=== PATIENT | female | born 1975 | race Caucasian/White ===

== ENCOUNTER 2024-12-03 13:46 | Outpatient (AMB) | payer OTHER, SELFPAY ==
--- NOTE | 2024-12-03 14:00 | MHC.OFFVIS ---
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 She has stopped taking propranolol awhile ago and now was having frequent headaches and sometime hand tremor. Tremor or shaking sometime was felt inside more than outside. Sometime she found herself forgetful.she was also under stress. [facility] Medical History (Updated 12/03/24 @ 14:04 by Allie Jacobson MD) Migraine Depression with anxiety Assessment & Plan Assessment & Plan (1) Benign essential tremor: Comment: MRI brain WO at [facility] in Jul 2020: WNL MRI brain WWO at [facility] in Aug 2020:WNL. Code(s): G25.0 - Essential tremor Category: Medical (2) Migraine without aura: Code(s): G43.009 - Migraine without aura, not intractable, without status migrainosus Category: Medical Qualifiers: Status migrainosus presence: without status migrainosus Intractability: not intractable Qualified Code(s): G43.009 - Migraine without aura, not intractable, without status migrainosus Plan Impression: 1. Migraine without aura 2. Benign essential tremor, mild 3. Anxiety disorder associated with psychosocial stresses Recommendations: 1. Propranolol 20 mg in the morning 2. Sumatriptan 50 mg 1 a day as needed for breakthrough headaches 3. She is advised to address stress and anxiety symptoms. Previously she was taking bupropion, which she can restart. Medications: New propranolol 20 mg PO ONCE 90 tabs 0RF sumatriptan succinate 50 mg orally one a day as needed PRN; do not exceed 4 doses per 24 hrs 10 tabs 2RF migraine headache 30 days Coding Level of Care Code Est Pt Level 4 (30720) Diagnoses Benign essential tremor G25.0 Migraine without aura and without status migrainosus, not intractable G43.009 Status migrainosus presence: without status migrainosus Intractability: not intractable
--- OUTSIDE RECORDS SUMMARY | 2024-12-03 14:32 | XMS_ITS | Patient Health Record ---
Author Organization [facility] Address [address] [facility] [address] Care Team Providers Care Yard Hostler Name Role Phone Maged Jenni Primary Care Provider James Sanon Anila Unavailable [phone] Allergies Allergen (clinical drug ingredient) Drug/Non Drug Allergy documented on EMR Reaction Allergy Type Onset Date Status Penicillin Unknown Drug Allergy Active Reason For Referral No Information Medications Medication SIG (Take, Route, Fr equency, Duration) Notes Start Date End Date Status Physical Therapy 3-4x per week for 3-4 weeks 02/14 Active Physical Therapy 3-4x per week for 3-4 weeks Active Ambien Active Problems Problem Type SNOMED Code ICD Code Onset Dates Problem Status W/U Status Risk Notes Problem Pain in limb (99956813) Pain in Limb (729.5) Active confirmed Problem Plantar fasciitis (928306529) Plantar Fasciitis (728.71) Active confirmed Problem Edema (00722852) Edema (782.3) Active confirmed Problem Myositis (89948111) Myositis (729.1) Active confirmed Problem Calcaneal spur (80397860) Calcaneal spur (726.73) Active confirmed Problem Stress fracture (32739333) Stress fx (733.94) Active confirmed Plan Of Treatment No Information Insurance Providers Payer Name Payer Address Payer Phone Subscriber Number Group Number Insured Name Patient Relationship to Insured Coverage Start Date Coverage End Date Aetna Choice POS [address] [address] [place] [address] [id number] [phone] Yarelis Vaca Self - patient is the insured Medical (General) History Medical History History ICD Code asthma
--- OUTSIDE RECORDS SUMMARY | 2024-12-03 14:32 | XMS_ITS | Clinical Summary ---
Author Organization [address] Address [address] [place] [address] Phone Care Team Providers Care Middle School Teacher Name Role Phone Jenni Lynne MD Primary Care Provider [phone] Allergies Active Allergy Reactions Criticality Noted Date Comments Levofloxacin 09/30/2016 [place] like body was on fire Penicillin G Potassium Hives 05/06/2005 Medications albuterol HFA (PROAIR HFA ; PROVENTIL HFA ; VENTOLIN HFA) 90 mcg/actuation inhaler Inhale 2 Puffs into the lungs every 4 hours as needed for Cough or Wheezing. 0 Active brimonidine (Mirvaso) 0.33 % gel with pump Apply 1 Squirt topically every morning. 0 Active buPROPion XL (WELLBUTRIN XL) 300 mg 24 hr tablet Take 300 mg by mouth daily. 0 Active ferrous sulfate 325 mg (65 mg elemental iron) tablet Take 325 mg by mouth 3 times daily. Active naltrexone (DEPADE) 50 mg tablet Take 50 mg by mouth daily. 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 Allergic rhinitis 07/21/2006 Insomnia 07/21/2006 Overview (04/25/2024): Proteinuria 04/07/2006 Alopecia 11/15/2005 Overview (04/25/2024): [facility] [place] Asthma 05/06/2005 Common migraine 05/06/2005 Overview (04/25/2024): [facility] [place] Immunizations Name Administration Dates Next Due H1N1 Inj Preservative Free 07/03/2009 Influenza Quadravalent, MDCK , 0.5ml, preservative free (Flucelvax) 6mo and older 01/25/2023,02/09/2022 Influenza trivalent, with pr eservative (Fluzone; Afluria) 6mo and older 12/31/2009,03/09/2007 Influenza, Unspecified 12/06/2014 Moderna (age 6mo & older) Bi valent, COVID-19, 0.5 mL or 0.25 mL dosage 01/19/2022 [employer] SARS-CoV-2 COVID-19, mRNA, LNP-S, preservative free 05/20/2020 Pneumococcal polysaccharide 23 valent (Pneumovax 23) 2yo and older 12/13/2013 Td, Unspecified 09/28/2004 Tdap Tetanus diptheria acell ular pertussis (Boostrix; Adacel) 7yo and older 01/06/2021,11/05/2010 Surgical History Surgery Date Site/Laterality Comments SECTION PROCEDURE: [place] DELIVERY ONLY TUBAL LIGATION PROCEDURE: HISTORICAL TUBAL LIGATION TONSILLECTOMY PROCEDURE: HISTORICAL TONSILLECTOMY OTHER SURGICAL HISTORY PROCEDURE: HYSTEROSCOPY, SURGICAL/ABLATION OTHER SURGICAL HISTORY 2015 PROCEDURE: HISTORICAL SUPRACERVICAL HYSTERECTOMY W/O BSO OTHER SURGICAL HISTORY 01/06/2021 Bilateral PROCEDURE: MAMMOGRAM, SCREENING, BOTH BREASTS HYSTERECTOMY age 41 Medical History Medical History Date Comments Migraine without aura, witho ut mention of intractable migraine without mention of status migrainosus DX:Migraine without aura , without mention of intractable migraine without mention of status migrainosus Allergic rhinitis, cause unspecified 07/21/2006 DX:Allergic rhinitis, cause unspecified Insomnia, unspecified 07/21/2006 DX:Insomni a, unspecified; COMMENT: uses rare ambien Unspecified asthma(493.90) DX:Un specified asthma(493.90) Abnormal uterine bleeding (AUB) DX:Abnormal uterine bleeding (AUB) Low back pain 11/01/2017 DX:Low back pain Tremor, essential 01/06/2021 DX:Tremor, ess ential Family History Medical History Relation Name Comments Breast cancer Aunt m40s mother's siste r, Dx in 40's Other: alive and well Father Diabetes Maternal Grandfather Hypertension Maternal Grandmother MD Diabetes Mother MIand stents Breast cancer Neg Hx Colon cancer Neg Hx Ovarian cancer Neg Hx Relation Name Status Comments Aunt m40s Alive Father Alive Maternal Grandfather Maternal Grandmother Mother Alive Paternal Grandfather Paternal Grandmother Social History Tobacco Use Types Packs/Day Years Used Date Smoking Tobacco: Never Smokeless Tobacco: Never Alcohol Use Standard Drinks/Week Comments Yes 2 (1 standard drink = 0.6 oz pur e alcohol) Comments Unknown Sex and Gender Information Value Date Recorded Sex Assigned at Not on file Legal Sex Female 3:26 PM EST Gender Identity Not on file Sexual Orientation Not on file Obstetrics History Para Term AB IAB SAB Ectopic Multiple Livin g Live Births 2 2 2 2 Date Outcome GA Total Labor Labor/2nd/3rd Weight Sex Type Anes PTL Maricel A1 A5 Name Clin Term Term Last Filed Vital Signs Vital Sign Reading Time Taken Comments Blood Pressure 121/76 06/12/2023 11:04 AM EST Pulse 68 06/12/2023 11:04 AM EST Temperature - - Respiratory Rate - - Oxygen Saturation - - Inhaled Oxygen Concentration - - Weight 75.8 kg (167 lb) 06/12/2023 11:04 AM EST Height 160 cm (5' 3 ) 06/12/2023 11:04 AM EST Body Mass Index 29.58 06/12/2023 11:04 AM EST Plan of Treatment Health Maintenance Due Date Last Done Comments Hepatitis B Vaccines (1 of 3 - 19+ 3-dose series) 1996 Pneumococcal Vaccine: Pediatrics (0 to 5 Years) and At-Risk Patients (6 to 49 Years) (2 of 2 - PCV) 12/13/2014 12/13/2013 Colorectal Cancer Screening: Colonoscopy 04/16/2022 HIV Screening 04/16/2022 Hepatitis C Screening 04/16/2022 Social Influencers of Health Screening 04/16/2022 COVID-19 Vaccine ( season) 2024 01/19/2022, 03/12/2021, 06/09/2020, Additional history exists Depression Screening 05/08/2024 Influenza Vaccine (#1) 2025 , 01/25/2023, 02/09/2022, Additional history exists Cholesterol Screening (Lipid Panel) 07/31/2025 07/31/2020 Breast Cancer Screening 07/22/2026 07/23/19, 07/13/2023, 07/13/2023, Additional history exists DTaP,Tdap,and Td Vaccines (4 - Td or Tdap) 01/06/2031 01/06/2021, 11/05/2010, 09/28/2004 HIB Vaccines Aged Out No longer eligi ble based on patient's age to complete this topic HPV Vaccines Aged Out No longer eligi ble based on patient's age to complete this topic Hepatitis A Vaccines Aged Out No long er eligible based on patient's age to complete this topic IPV Vaccines Aged Out No longer eligi ble based on patient's age to complete this topic MMR Vaccines Aged Out No longer eligi ble based on patient's age to complete this topic Meningococcal ACWY Vaccine Aged Out N o longer eligible based on patient's age to complete this topic Meningococcal B Vaccine Aged Out No l onger eligible based on patient's age to complete this topic RSV Immunization Patients Under 20 months Aged Out No longer eligible based on patient's age to complete this topic Varicella Vaccines Aged Out No longer eligible based on patient's age to complete this topic Procedures Procedure Name Priority Date/Time Associated Diagnosis Comments MG MAMMO DIGITAL SCREENING W AUGUSTO BILAT Routine 07/22/2024 4:01 PM EDT Encounter for screening mammogram for breast cancer LIPID PANEL Routine 07/31/2020 from Last 3 Months or Most Recently Relevant to Health Maintenance Results * MG Mammo Digital Screening w Augusto bilat (07/22/2024 4:01 PM EDT) Anatomical Region Laterality Modality Breast Bilateral Mammography 07/23/2024 10:1 7 AM EDT Impressions 07/23/2024 10:20 AM EDT BILATERAL BREASTS: Negative, no evidence of malignancy. Normal interval follow- up is recommended in 12 months. BREAST DENSITY: C - The breasts are heterogeneously dense which may obscure small masses. BI-RADS CATEGORY: 2 - BENIGN RECOMMENDATION: Screening bilateral mammogram is recommended in 1 year. Mammo Location: [facility], [address] [place] [address], [address], . -------- FINAL REPORT -------- Dictated By: Joel Tate Dictated Date: 07/23/2024 10:17 ET Assigned Physician: Joel Tate Reviewed and Electronically Signed By: Joel Tate Signed Date: 07/23/2024 10:20 ET Workstation ID: [id number] Transcribed By: Self Edit Transcribed Date: 07/23/2024 10:17 ET Narrative 07/23/2024 10:20 AM EDT STUDY: Bilateral screening mammography with tomosynthesis and CAD TECHNIQUE: Bilateral full-field digital screening mammography is obtained and read in conjunction with computer-aided detection. Tomosynthesis as well as 2-D C view imaging were obtained. COMPARISON: Comparison made to multiple prior, most recent July 13, 2023, and most remote May 31, 2017. BILATERAL BREASTS: No significant masses, suspicious calcifications or other abnormalities are seen in either breast. Procedure Note Joel Tate MD - 07/23/2024 STUDY: Bilateral screening mammography with tomosynthesis and CAD TECHNIQUE: Bilateral full-field digital screening mammography is obtainedand read in conjunction with computer-aided detection. Tomosynthesis aswell as 2-D C view imaging were obtained. COMPARISON: Comparison made to multiple prior, most recent July 13, 2023,and most remote May 31, 2017. BILATERAL BREASTS: No significant masses, suspicious calcifications orother abnormalities are seen in either breast. IMPRESSION: BILATERAL BREASTS: Negative, no evidence of malignancy. Normal intervalfollow-up is recommended in 12 months. BREAST DENSITY: C - The breasts are heterogeneously dense which mayobscure small masses. BI-RADS CATEGORY: 2 - BENIGN RECOMMENDATION: Screening bilateral mammogram is recommended in 1 year. Mammo Location: [facility], [address] [place] [address], [address], . -------- FINAL REPORT -------- Dictated By: Joel Tate Dictated Date: 07/23/2024 10:17 ET Assigned Physician: Joel Tate Reviewed and Electronically Signed By: Joel Tate Signed Date: 07/23/2024 10:20 ET Workstation ID: [id number] Transcribed By: Self Edit Transcribed Date: 07/23/2024 10:17 ET Jenni Lynne MD IMG BI PROCEDURES Final Result * (ABNORMAL) Lipid panel (07/31/2020) LDL/HDL Ratio 3 0 - 4 Triglycerides 98 0 - 150 mg/dL Cholesterol 183 0 - 200 mg/dL HDL 60 >=40 mg/dL LDL Cholesterol 104(A) 0 - 100 mg/dL Blood Venous blood specimen / Unknown Historical Provider LAB BLOOD ORDERABLES Kristin l Result from Last 3 Months or Most Recently Relevant to Health Maintenance [place] [address] [address] [address] [place] [address] Care Teams Middle School Teacher Relationship Specialty Start Date End Date Jenni Lynne MD [address] [place] [address] PCP - General 08/06/1997
--- OUTSIDE RECORDS SUMMARY | 2024-12-03 14:32 | XMS_ITS ---
Author Name [facility] Organization Unknown Care Team Organization Name Specialty Phone Email Start Date End Da te [facility] Jenni Lynne Primary Care 03/15/2022 4
== END 2024-12-03 14:10 | disposition home or self-care (01) ==
LOC: HO.HSM 13:47
PROVIDERS: PCP Internal Medicine; Visit Provider Psychiatry & Neurology Neurology
DX: G25.0 Essential tremor (principal); G43.009 Migraine without aura, not intractable, without status migrainosus
CPT/HCPCS: 99214

== ENCOUNTER 2025-03-05 13:40 | Outpatient (AMB) | payer OTHER, SELFPAY ==
--- NOTE | 2025-03-05 13:42 | A.OFFVIS_ITS ---
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 She is presenting with recurrent headaches with symptoms indicative of migraines. She notes that the headaches have been problematic for several days, with the severity fluctuating between a mild headache and a full-blown migraine. The pain is experienced both in the frontal and occipital regions, and these episodes occur approximately twice a month. She has experienced disruptions in her work routine due to the severity of these migraines, indicating a functional impairment. Current management includes sumatriptan and ibuprofen, although the patient has expressed concerns about the efficacy of these medications during significant episodes. There is consideration for an alternative combination therapy for better management and relief. [facility] Medical History (Updated 03/05/25 @ 13:45 by Allie Jacobson MD) Migraine Depression with anxiety Review of Systems Narrative - Neurological: Reports headaches occurring in the frontal and occipital regions, migraines without aura. - General: Denies any other systemic symptoms relevant to the headaches. Physical Exam Neuro Other: Mental Status: Alert and oriented to person, place, and time. Normal attention. Normal spontaneous speech, fluency, and comprehension. No obvious issues with mood and memory. Affect is appropriate. Cranial Nerves: CN II: Visual galindo full to confrontation, visual acuity intact. CN III, IV, : Pupils equal, round, reactive to light and accommodation. Extraocular movements are normal. CN V: Facial sensation is normal. CN VII: Facial movements symmetrical. CN VIII: Hearing intact to bedside conversation is normal. CN IX, X: Palate elevates symmetrically. CN XI: Shoulder shrug and head turn symmetrical. CN XII: Tongue midline without atrophy or fasciculations. Motor: Bulk and tone normal in all extremities. No significant muscle weakness in arms and legs. No drift. Reflexes: Deep tendon reflexes 2+ and symmetric. Plantar response down-going bilaterally. Coordination: [id number] and iomy-cy-iebu testing normal. No dysmetria. Gait and Station: No obvious gait abnormality. No ataxia or instability. Extrapyramidal: Full facial expressions and blinking. No rigidity. Movements are appropriate with no tremor or abnormality. Speech: Normal; no dysarthria or tremor. Assessment & Plan Assessment & Plan (1) Benign essential tremor: Code(s): G25.0 - Essential tremor Category: Medical (2) Migraine without aura: Comment: MRI brain WO at [facility] in Jul 2020: WNL Code(s): G43.009 - Migraine without aura, not intractable, without status migrainosus Category: Medical Qualifiers: Status migrainosus presence: without status migrainosus Intractability: not intractable Qualified Code(s): G43.009 - Migraine without aura, not intractable, without status migrainosus Plan Impression: 1. Benign essential tremor 2. Migraine without aura Recommendations: 1. Propranolol 20 mg a day. With this tremor is somewhat better and migraine frequency has improved 2. Try sumatriptan 50 mg + metoclopramide 5 mg +in [id number] Excedrin as needed for breakthrough headache. Medications: New metoclopramide HCl 5 mg orally one as needed; 20 tabs 0RF Refilled sumatriptan succinate 50 mg orally one a day as needed PRN; do not exceed 4 doses per 24 hrs 10 tabs 2RF migraine headache 30 days Coding Level of Care Code Est Pt Level 4 (66779) Diagnoses Benign essential tremor G25.0 Migraine without aura and without status migrainosus, not intractable G43.009 Status migrainosus presence: without status migrainosus Intractability: not intractable
--- OUTSIDE RECORDS SUMMARY | 2025-03-05 17:26 | XMS_ITS | Clinical Summary ---
Author Organization [address] Address [address] [place] [phone] Phone Care Team Providers Care Insurance Sales Professional Name Role Phone Jenni Lynne MD Primary Care Provider [phone] Allergies Active Allergy Reactions Criticality Noted Date Comments Levofloxacin 09/30/2016 [place] like body was on fire Penicillin G [...] (04/25/2024): Proteinuria 04/07/2006 Alopecia 11/15/2005 Overview (04/25/2024[place] [facility] [place] Asthma 05/06/2005 Common migraine 05/06/2005 Overview (04/25/2024): [facility] [place] Immunizations Immunization Administration Dates Next Due H1N1 Inj Preservative Free 07/03/2009 Influenza Quadravalent, MDCK , 0.5ml, preservative free (Flucelvax) 6mo and older 01/25/2023,02/09/2022 Influenza trivalent, with pr eservative (Fluzone; Afluria) 6mo and older 12/31/2009,03/09/2007 Influenza, Unspecified 12/06/2014 Moderna (age 6mo & older) Bi valent, COVID-19, 0.5 mL or 0.25 mL dosage 01/19/2022 [employer] SARS-CoV-2 COVID-19, mRNA, LNP-S, preservative free 05/20/2020 Pneumococcal polysaccharide 23 valent (Pneumovax 23) 2yo and older 12/13/2013 Td, Unspecified 09/28/2004 Tdap Tetanus diptheria acell ular pertussis (Boostrix; Adacel) 7yo and older 01/06/2021,11/05/2010 Surgical History Surgery Date Site/Laterality Comments SECTION PROCEDURE: [place] DELIVERY ONLY TUBAL LIGATION PROCEDURE: HISTORICAL TUBAL [...] Father Diabetes Maternal Grandfather Hypertension Maternal Grandmother MT Diabetes Mother MIand stents Breast cancer Neg [...] Health Maintenance Due Date Last Done Comments Colorectal Cancer Screening: Colonoscopy 1977 Hepatitis B Vaccines (1 of 3 - 19+ 3-dose series) 1996 Pneumococcal Vaccine: Pediatrics (0 to 5 Years) and At-Risk Patients (6 to 49 Years) (2 of 2 - PCV) 12/13/2014 12/13/2013 HIV Screening 04/16/2022 Hepatitis C Screening 04/16/2022 Social Influencers of Health Screening 04/16/2022 Depression Screening 05/08/2024 COVID-19 Vaccine ( season) 2025 01/19/2022, 03/12/2021, 06/09/2020, Additional history exists Influenza Vaccine (#1) 2025 , 01/25/2023, 02/09/2022, Additional history exists Cholesterol Screening (Lipid Panel) 07/31/2025 07/31/2020 Breast Cancer Screening 07/22/2026 07/23/19 25, 07/13/2023, 07/13/2023, Additional history exists DTaP,Tdap,and Td Vaccines (4 - Td or Tdap) 01/06/2031 01/06/2021, 11/05/2010, 09/28/2004 RSV Immunization Adult Patients (1 - 1-dose 75+ series) 2052 HIB Vaccines Aged Out No longer eligi [...] is recommended in 1 year. Mammo Location: [facility], [address] [place] [address], [address], . -------- FINAL REPORT -------- Dictated By: Joel Tate Dictated Date: 07/23/2024 10:17 ET Assigned Physician: Joel Tate Reviewed and Electronically Signed By: Joel Tate Signed Date: 07/23/2024 10:20 ET Workstation ID: [id number] Transcribed By: Self Edit Transcribed Date: 07/23/2024 [...] is recommended in 1 year. Mammo Location: [facility], [address] [place] [address], [address], . -------- FINAL REPORT -------- Dictated By: Joel Tate Dictated Date: 07/23/2024 10:17 ET Assigned Physician: Joel Ttae Reviewed and Electronically Signed By: Joel Tate Signed Date: 07/23/2024 10:20 ET Workstation ID: [id number] Transcribed By: Self Edit Transcribed Date: 07/23/2024 10:17 ET Jenni Lynne MD IMG BI PROCEDURES Final Result * (ABNORMAL) Lipid panel (07/31/2020) LDL/HDL Ratio 3 0 - 4 Triglycerides 98 0 - 150 mg/dL Cholesterol 183 0 - 200 mg/dL HDL 60 >=40 mg/dL LDL Cholesterol 104(A) 0 - 100 mg/dL Blood Venous blood specimen / Unknown Historical Provider LAB BLOOD ORDERABLES Kristin bello Result from Last 3 Months or Most Recently Relevant to Health Maintenance [place] [address] [place] [address] Care Teams Insurance Sales Professional Relationship Specialty Start Date End Date Jenni Lynne MD [address] [place] [address] PCP - General 08/06/1997
--- OUTSIDE RECORDS SUMMARY | 2025-03-05 17:26 | XMS_ITS | Patient Health Record ---
Author Organization [facility] Address [address] [facility] [place] [address] Care Team Providers Care Blocker Polishing Name Role Phone Maged Jenni Primary Care Provider James Sanon Anila Unavailable [phone] Allergies Allergen (clinical drug ingredient) Drug/Non Drug [...] Status Risk Notes Problem Pain in limb (97841708) Pain in Limb (729.5) Active confirmed Problem Plantar fasciitis (953921714) Plantar Fasciitis (728.71) Active confirmed Problem Edema (45120918) Edema (782.3) Active confirmed Problem Myositis (10118389) Myositis (729.1) Active confirmed Problem Calcaneal spur (38559761) Calcaneal spur (726.73) Active confirmed Problem Stress fracture (34664274) Stress fx (733.94) Active confirmed Plan Of Treatment No Information Insurance Providers Payer Name Payer Address Payer Phone Subscriber Number Group Number Insured Name Patient Relationship to Insured Coverage Start Date Coverage End Date [employer] Choice POS [address] [address] [place] [phone] [id number] [phone] Yarelis Vaca Self - patient is the insured Medical (General) History Medical History History ICD Code asthma
== END 2025-03-05 13:50 | disposition home or self-care (01) ==
LOC: HO.HSM 13:41
PROVIDERS: PCP Internal Medicine; Visit Provider Psychiatry & Neurology Neurology
DX: G25.0 Essential tremor (principal); G43.009 Migraine without aura, not intractable, without status migrainosus
CPT/HCPCS: 99214